=== PATIENT | female | born 1965 | race Caucasian/White ===

== ENCOUNTER 2019-05-28 17:19 | Emergency (ER) | payer BC ==
[2019-05-28 17:52] VITALS: BP 139/92
--- NOTE | 2019-05-28 18:35 | UC ---
Lower Extremity/Ankle HPI - HPI Summary HPI Summary: The bottom of her right foot has been itching for 2 days. She has tried over- the-counter remedies such as jock itch. A friend gave her some steroid cream which helped a bit. She denies any other complaints. She has occasionally had this happen but never this severe. - History of Current Complaint Chief Complaint: Roselyn Stated Complaint: FOOT ITCH Time Seen by Provider: 05/28/19 18:16 Severity Initially: Mild Severity Currently: Moderate Pain Intensity: 8 Aggravating Factor(s): Nothing Alleviating Factor(s): Nothing Able to Bear Weight: Yes - Allergies/Home Medications Allergies/Adverse Reactions: Allergies Allergy/AdvReac Type Severity Reaction Status Date / Time No Known Allergies Allergy Verified 05/28/19 17:52 Home Medications: Home Medications Fluocinolone 0.025% CM(NF) [Synalar 0.025% CREAM(NF)] 1 dose TOPICAL TID [History Confirmed 05/28/19] PMH/Surg Hx/FS Hx/Imm Hx Cardiovascular History: Hypertension - Surgical History Surgical History: Yes Surgery Procedure, Year, and Place: sinus surgery 16 yrs ago, c section x 2, nasal surgery, d & c - Family History Known Family History: Positive: Cardiac Disease, Hypertension - Social History Alcohol Use: Rare Substance Use Type: None Smoking Status (MU): Never Smoked Tobacco Review of Systems All Other Systems Reviewed And Are Negative: Yes Physical Exam - Summary Physical Exam Summary: She is nontoxic in appearance of stable vital signs. Triage Information Reviewed: Yes Appearance: Well-Appearing, Obese Vital Signs: Initial Vital Signs Temp 98.7 F 05/28/19 17:50 Pulse 73 05/28/19 17:50 Resp 12 05/28/19 17:50 BP 139/92 05/28/19 17:50 Pulse Ox 99 05/28/19 17:50 Vital Signs Reviewed: Yes Musculoskeletal Exam: Normal Neurological Exam: Normal Skin Exam: Normal Lower Extremity Course/Dx - Course Course Of Treatment: Her foot is unremarkable to exam. I don't know what is causing the itching. I recommended symptomatic treatment and follow-up if not improved. - Differential Dx/Diagnosis Provider Diagnosis: Itching Discharge ED - Sign-Out/Discharge Documenting (check all that apply): Patient Departure All imaging exams completed and their final reports reviewed: No Studies - Discharge Plan Condition: Stable Disposition: HOME Prescriptions: Triamcinolone 0.5% CREAM(NF) [Triamcinolone 0.5% CREAM*] 1 applic TOPICAL TID # 20 tube Patient Education Materials: Itchy Skin (ED) Referrals: Nicolas Maxwell MD [Primary Care Provider] - - Billing Disposition and Condition Condition: STABLE Disposition: Home
== END 2019-05-28 18:30 | disposition home or self-care (01) ==
LOC: UCEAST 17:19
DX: L29.8 Other pruritus (principal); I10 Essential (primary) hypertension
CPT/HCPCS: 99212; G0463